=== PATIENT | male | born 1965 | race Caucasian/White ===

== ENCOUNTER 2016-11-18 15:47 | Inpatient (IN) | payer OTHER ==
[~2016-11-18] VITALS: Ht 182.9 cm; Wt 92.4 kg
[~2016-11-18 15:47] MED LIST: ACID CONTROLLER20 MG PO; ADVAIR 250/501 DISK IH; ADVAIR IH; ALEVE220 MG PO; AMBIEN10 MG PO; AMOXICILLIN875 MG PO; APIDRA SOL100 UNIT/1 SC; ASCORBIC ACID500 M3 PO; ASPIR-LOW81 MG PO; AUGMENTIN875 MG PO; BACTRIM,SEPT1 TABLET PO; CEFEPIME HCL1 GM IM; CETIRIZINE HCL10 M2 PO; CIPRO500 MG PO; CIPRODEX OTIC7.5 ML LEFT EAR; CLEOCIN300 MG PO; CRESTOR20 MG PO; CYCLOBENZAPRINE10 MG PO; DOCUSATE SODIU100 MG PO; ELAVIL25 MG PO; ENDOCET 5-3251 EACH PO; FAMOTIDINE20 MG PO; FERROUS SULFAT325 MG PO; FLEXERIL10 MG PO; FUROSEMIDE20 MG PO; GABAPENTIN800 MG PO; GLIPIZIDE10 MG PO; HYDROCODON-ACE1 EAC5 PO; INCRUSE ELLI62.5 MCG IH; KADIAN60 MG PO; LANTUS 10100 UNITS/ SC; LASIX20 MG PO; LEVEMIR100 UNIT/2 SC; LIPITOR20 MG PO; LISINOPRIL2.5 MG PO; LOPRESSOR50 MG PO; LYRICA100 MG PO; LYRICA200 MG PO; METFORMIN HCL1000 MG PO; METHADONE10 MG PO; METRONIDAZOLE500 MG PO; MORPHINE SULFA100 M2 PO; MORPHINE SULFAT15 M1 PO; MORPHINE SULFAT15 MG PO; MORPHINE SULFAT30 M2 PO; NEURONTIN600 MG PO; NEURONTIN800 MG PO; NICODERM CQ1 EAC2 TD; NICOTINE PATCH1 EAC2 TD; NIFEDIPINE ER30 MG PO; NITROGLYCERIN0.4 MG SL; NITROSTAT0.4 MG SL; NORCO 5/3251 TABLET PO; NOVOLOG PE100 UNITS/ SC; OXYCODONE HCL5 MG PO; OXYCONTIN10 MG PO; PANTOPRAZOLE SO40 MG PO; ROCEPHIN1000 MG IM; SENNA PLUS TAB1 EACH PO; SERTRALINE HCL50 MG PO; TAMSULOSIN HCL0.4 MG PO; TOPROL XL100 MG PO; TOPROL XL50 MG PO; VANCOMYCIN1 GM/150 M IV; VISINE TEARS DR30 ML BOTH EYES; VISINE15 ML BOTH EYES; VITAMIN B-121000 MCG PO; VITAMIN C500 M1 PO; ZESTRIL2.5 MG PO; ZOFRAN ODT4 MG PO; ZOLOFT100 MG PO; ZOLOFT50 MG PO; ZOLPIDEM TARTRAT5 MG PO
[2016-11-18 17:00] LABS: HEMATOCRIT 44.9 % (38.0-50.0); MCH 27.4 PG (29.0-34.0); MCHC 32.7 G/DL (30.0-36.0); MCV 83.6 FL (86-99); MEAN PLAT.VOLUME 9.7 uM^3 (9.0-12.4); PLATELET COUNT 278 K/uL (156-360); RBC DIS.WIDTH-CV 12.9 % (11.8-14.6); RED BLOOD COUNT 5.37 M/uL (4.00-5.50); WHITE BLOOD COUNT 13.7 K/uL (4.1-10.2)
[2016-11-18 17:10] LABS: CHLORIDE 100 mEq/L (99-109); SODIUM 136 mEq/L (136-147)
[2016-11-18 17:13] LABS: ANION GAP 14 MEQ/L (2-14)
[2016-11-18 17:15] LABS: SERUM ETHYL ALCOHOL < 10 mg/dL
[2016-11-18 17:16] LABS: GFR ESTIMATE (CALCULATED) 57 mL/min/; GLUCOSE 540 mg/dL (70-99)
[2016-11-18 17:17] LABS: UREA NITROGEN (BUN) 27 mg/dL (9-23)
[2016-11-18 18:09] LABS: COCAINE NEGATIVE (150 ng/mL); METHAMPHETAMINE NEGATIVE (500 ng/mL); OPIATES (MORPHINE) PRESUMPTIVE POSITIVE (100 ng/mL); PHENCYCLIDINE NEGATIVE (25 ng/mL); THC CANNABINOIDS NEGATIVE (50 ng/mL)
[2016-11-18 18:10] LABS: ADD MEDTOX COMMENT Y; AMPHETAMINE NEGATIVE (500 ng/mL); BARBITURATES NEGATIVE (200 ng/mL); BENZODIAZEPINES NEGATIVE (150 ng/mL); INTERNAL CONTROLS VALID? YES; METHADONE NEGATIVE (200 ng/mL); OXYCODONE NEGATIVE (100 ng/mL); PROPOXYPHENE NEGATIVE (300 ng/mL); TRICYCLIC ANTIDEPRESSANTS PRESUMPTIVE POSITIVE (300 ng/mL)
[2016-11-18] MEDS ORDERED: HUMALOG100 UNIT/1 SC (19:57)
[2016-11-18] MEDS ORDERED: LANTUS 10100 UNITS/ SC (19:57)
[2016-11-18 20:08] LABS: POINT-OF-CARE METER ID UU14100415
[2016-11-18 21:07] VITALS: BP 138/81
[2016-11-18] MEDS ORDERED: ARIPIPRAZOLE10 MG PO (21:22)
[2016-11-18] MEDS ORDERED: CITALOPRAM HBR20 MG PO (21:23)
[2016-11-18] MEDS ORDERED: ALPRAZOLAM0.5 MG PO (21:23)
[2016-11-18] MEDS ORDERED: NICORETTE2 M1 BC (21:24)
[2016-11-18] MEDS ORDERED: TRAZODONE HCL100 MG PO (21:30)
[2016-11-18] MEDS ORDERED: KADIAN30 MG PO (22:42)
[2016-11-18 23:28] LABS: POINT-OF-CARE METER ID UU13113830; POINT-OF-CARE USER ID BHSSMG
[2016-11-19 06:07] LABS: POINT-OF-CARE METER ID UU13113830; POINT-OF-CARE USER ID BHSSMG
[2016-11-19 07:46] VITALS: BP 126/70
[2016-11-19 10:25] LABS: POINT-OF-CARE METER ID UU14100415
[2016-11-19 11:59] LABS: POINT-OF-CARE METER ID UU13113830
[2016-11-19 15:51] VITALS: BP 107/66
[2016-11-19 16:59] LABS: POINT-OF-CARE METER ID UU13113830
[2016-11-19 21:07] LABS: POINT-OF-CARE METER ID UU13113830; POINT-OF-CARE USER ID ENVTLS63
[2016-11-20 06:19] LABS: POINT-OF-CARE METER ID UU13113830; POINT-OF-CARE USER ID BHSMEW
[2016-11-20 07:53] VITALS: BP 112/55
[2016-11-20 08:58] LABS: ANION GAP 6 MEQ/L (2-14); CHLORIDE 105 MEQ/L (99-109); GFR ESTIMATE (CALCULATED) > 59 mL/min/; POTASSIUM 4.2 MEQ/L (3.7-5.4); SAMPLE HEMOLYSIS CHECK 0; SAMPLE ICTERIC CHECK 0; SAMPLE LIPEMIA CHECK 0; SODIUM 139 MEQ/L (136-147); UREA NITROGEN (BUN) 19 mg/dL (9-23)
[2016-11-20 09:09] LABS: GLUCOSE 148 mg/dL (70-99)
[2016-11-20 09:40] LABS: Estimated Average Glucose 361 mg/dL (70-123); HEMOGLOBIN A1c (GLYCOHEMOGLOB) 14.2 % HGB (Below 5.7)
[2016-11-20 11:59] LABS: POINT-OF-CARE METER ID UU13113830; POINT-OF-CARE USER ID BHSTSA
[2016-11-20 15:37] VITALS: BP 127/63
[2016-11-20 16:41] LABS: POINT-OF-CARE METER ID UU13113830
[2016-11-20 21:02] LABS: POINT-OF-CARE METER ID UU13113830
[2016-11-21 06:31] LABS: POINT-OF-CARE METER ID UU13113830
[2016-11-21 07:42] VITALS: BP 102/55
[2016-11-21 11:28] LABS: POINT-OF-CARE METER ID UU13113830
[2016-11-21 15:23] VITALS: BP 108/58
[2016-11-21 16:30] LABS: POINT-OF-CARE METER ID UU13113830; POINT-OF-CARE USER ID BHSSMG
[2016-11-21 20:49] LABS: POINT-OF-CARE METER ID UU13113830; POINT-OF-CARE USER ID BHSSMG
[2016-11-22 06:25] LABS: POINT-OF-CARE METER ID UU13113830; POINT-OF-CARE USER ID ENVTLS63
[2016-11-22 07:44] VITALS: BP 99/57
[2016-11-22] MEDS ORDERED: LYRICA50 MG PO (09:41)
[2016-11-22] MEDS ORDERED: CITALOPRAM HBR20 MG PO (09:41)
[2016-11-22] MEDS ORDERED: MORPHINE SULFAT15 M1 PO (09:41)
[2016-11-22] MEDS ORDERED: NOVOLOG PE100 UNITS/ SC (09:41)
[2016-11-22] MEDS ORDERED: TRAMADOL HCL50 MG PO (09:41)
[2016-11-22 09:47] VITALS: BP 117/68
[2016-11-22 11:46] LABS: POINT-OF-CARE METER ID UU13113830
== END 2016-11-22 12:50 | disposition home or self-care (01) | DRG 885 ==
LOC: EME 15:47 → 1WEST 19:20 → EDOF 19:20 → 1WEST 20:59
PROVIDERS: Physician Assistant Medical; Psychiatry & Neurology Psychiatry
DX: F33.2 Major depressive disorder, recurrent severe without psychotic features (principal); R45.851 Suicidal ideations; N17.9 Acute kidney failure, unspecified; Z89.511 Acquired absence of right leg below knee; G89.29 Other chronic pain; E11.42 Type 2 diabetes mellitus with diabetic polyneuropathy; J44.9 Chronic obstructive pulmonary disease, unspecified; E11.65 Type 2 diabetes mellitus with hyperglycemia; N18.9 Chronic kidney disease, unspecified; E11.22 Type 2 diabetes mellitus with diabetic chronic kidney disease; F17.210 Nicotine dependence, cigarettes, uncomplicated; I25.10 Atherosclerotic heart disease of native coronary artery without angina pectoris; I73.9 Peripheral vascular disease, unspecified; I25.2 Old myocardial infarction; Z98.61 Coronary angioplasty status; Z79.4 Long term (current) use of insulin; Z83.3 Family history of diabetes mellitus; Z82.49 Family history of ischemic heart disease and other diseases of the circulatory system; Z80.52 Family history of malignant neoplasm of bladder
CPT/HCPCS: 80048; 81003; 82948; 83036; 84999; 85027; 90839; 94640; 94640 76; 97150 GO; 97166 GO; 99281; 99285; G0480; J1815; J7030